=== PATIENT | female | born 1970 | race African-American/Black ===

== ENCOUNTER → 2016-06-29 | Outpatient (CLI) | payer BC ==
[~2016-06-29] MED LIST: LISI2.5T47; SIMV5TAB50; TRIA25CA
[2016-06-29 17:13] LABS: Basophils # (auto) 0 uL; Basophils % (auto) 0.4 % (0.0-2.0); Eosinophils # (auto) 0.2 uL; Eosinophils % (auto) 2.9 % (0.0-7.0); Hematocrit 36.8 % (36.0-46.0); Hemoglobin 12.1 g/dL (12.2-16.2); Lymphocytes # (auto) 2.3 uL; Lymphocytes % (auto) 29.4 % (10.0-50.0); Mean Corpuscular Hemoglobin 28.9 pg (28.0-32.0); Mean Corpuscular Volume 87.6 fL (80.0-100.0); Mean Platelet Volume 7.9 fL (7.4-10.4); Monocytes # (auto) 0.6 uL; Monocytes % (auto) 8.1 % (0.0-12.0); Neutrophils # (auto) 4.6 uL; Neutrophils % (auto) 59.2 % (37.0-80.0); Platelet Count (auto) 433 10^3/uL (140-450); Red Cell Distribution Width 14.6 % (11.6-16.0); White Blood Cell 7.8 10^3/uL (4.4-10.8)
[2016-06-29 17:26] LABS: Albumin 3.4 g/dL (3.4-5.0); BUN/Creatinine Ratio 16.2; Bilirubin, Total 0.2 mg/dL (0.2-1.0); Calcium 8.9 mg/dL (8.5-10.1); Potassium 3.5 mmol/L (3.5-5.1); Total Protein 8.1 g/dL (6.4-8.2)
== END | disposition home or self-care (01) ==
LOC: LAB 16:39
PROVIDERS: ATTEND Internal Medicine
DX: I10 Essential (primary) hypertension (principal); E78.5 Hyperlipidemia, unspecified; E87.6 Hypokalemia
CPT/HCPCS: 36415; 80053; 80061; 82306; 83036; 84439; 84443; 85025

== ENCOUNTER → 2017-05-09 | Outpatient (CLI) | payer BC ==
[~2017-05-09] VITALS: Ht 162.6 cm; Wt 157.4 kg
[~2017-05-09] MED LIST changes: +ADENOSINE 132 MG in GIVE UN-DILUTED 0 ML IV ONE
[2017-05-09 10:45] VITALS: BP 120/86
[2017-05-23 10:48] VITALS: BP 122/74
== END | disposition home or self-care (01) ==
LOC: XY 08:13
PROVIDERS: ATTEND Internal Medicine Cardiovascular Disease
DX: R07.89 Other chest pain (principal)
CPT/HCPCS: 93017; 93306; J0153

== ENCOUNTER → 2018-08-17 | Outpatient (CLI) | payer BC ==
[~2018-08-17] MED LIST changes: -ADENOSINE 132 MG in GIVE UN-DILUTED 0 ML IV ONE
[2018-08-17 08:30] LABS: Basophils # (auto) 0 uL; Basophils % (auto) 0.9 % (0.0-2.0); Eosinophils # (auto) 0.2 uL; Eosinophils % (auto) 3.8 % (0.0-7.0); Hematocrit 39.3 % (36.0-46.0); Lymphocytes # (auto) 1.4 uL; Lymphocytes % (auto) 28.3 % (10.0-50.0); Mean Corpuscular Hemoglobin 28.7 pg (28.0-32.0); Mean Corpuscular Hgb Conc. 33.1 g/dL (32.0-36.0); Mean Corpuscular Volume 86.9 fL (80.0-100.0); Monocytes # (auto) 0.5 uL; Monocytes % (auto) 9.8 % (0.0-12.0); Neutrophils # (auto) 2.8 uL; Neutrophils % (auto) 57.2 % (37.0-80.0); Nucleated Red Blood Cells % 0.1 %; Platelet Count (auto) 334 10^3/uL (140-450); Red Blood Cells 4.53 10^6/uL (4.0-5.20); Red Cell Distribution Width 15.1 % (11.8-14.3); White Blood Cell 4.8 10^3/uL (4.4-10.8)
[2018-08-17 09:07] LABS: Bilirubin, Total 0.3 mg/dL (0.2-1.0); Total Protein 8.4 g/dL (6.4-8.2)
[2018-08-17 09:16] LABS: Albumin 3.9 g/dL (3.4-5.0); Calcium 9.3 mg/dL (8.5-10.1)
[2018-08-17 09:18] LABS: Potassium 3.6 mmol/L (3.5-5.1)
[2018-08-17 09:19] LABS: BUN/Creatinine Ratio 21.2
== END | disposition home or self-care (01) ==
LOC: LAB 08:03
PROVIDERS: ATTEND Physician Assistant
DX: Z00.00 Encounter for general adult medical examination without abnormal findings (principal); E78.49 Other hyperlipidemia; D64.89 Other specified anemias; R73.09 Other abnormal glucose; I10 Essential (primary) hypertension
CPT/HCPCS: 36415; 80053; 80061; 83036; 85025

== ENCOUNTER → 2019-01-25 | Outpatient (CLI) | payer BC | END | disposition home or self-care (01) | LOC: LAB 08:14 | PROVIDERS: ATTEND Specialist | DX: Z01.419 Encounter for gynecological examination (general) (routine) without abnormal findings (principal) | CPT/HCPCS: 36415; 82565; 84520 ==

== ENCOUNTER → 2019-09-17 | Outpatient (CLI) | payer BC ==
[2019-09-17 07:49] LABS: Basophils # (auto) 0.1 10 ^3/uL (0-0.2); Basophils % (auto) 1.2 % (0.0-2.0); Eosinophils # (auto) 0.1 10 ^3/uL (0-0.8); Eosinophils % (auto) 2.3 % (0.0-7.0); Hematocrit 40.9 % (36.0-46.0); Hemoglobin 13.2 g/dL (12.2-16.2); Lymphocytes # (auto) 1.4 10 ^3/uL (0.4-5.4); Lymphocytes % (auto) 21.2 % (10.0-50.0); Mean Corpuscular Hemoglobin 28.7 pg (28.0-32.0); Mean Corpuscular Hgb Conc. 32.3 g/dL (32.0-36.0); Mean Corpuscular Volume 88.9 fL (80.0-100.0); Monocytes # (auto) 0.5 10 ^3/uL (0-1.3); Monocytes % (auto) 8.4 % (0.0-12.0); Neutrophils # (auto) 4.3 10 ^3/uL (1.6-8.6); Neutrophils % (auto) 66.9 % (37.0-80.0); Nucleated Red Blood Cells % 0.1 %; Platelet Count (auto) 351 10^3/uL (140-450); Red Blood Cells 4.61 10^6/uL (4.0-5.20); Red Cell Distribution Width 14.4 % (11.8-14.3); White Blood Cell 6.5 10^3/uL (4.4-10.8)
[2019-09-17 09:24] LABS: Potassium 4.2 mmol/L (3.5-5.1)
[2019-09-17 09:37] LABS: Albumin 3.6 g/dL (3.4-5.0); BUN/Creatinine Ratio 20.3; Bilirubin, Total 0.5 mg/dL (0.2-1.0); Calcium 9.5 mg/dL (8.5-10.1); Total Protein 8.3 g/dL (6.4-8.2)
== END | disposition home or self-care (01) ==
LOC: LAB 07:25
PROVIDERS: ATTEND Physician Assistant
DX: E78.49 Other hyperlipidemia (principal); R76.0 Raised antibody titer; R76.9 Abnormal immunological finding in serum, unspecified; I10 Essential (primary) hypertension; E87.6 Hypokalemia
CPT/HCPCS: 36415; 80053; 80061; 85025

== ENCOUNTER → 2020-04-30 | Outpatient (CLI) | payer BC | END | disposition home or self-care (01) | LOC: LAB 09:23 | PROVIDERS: ATTEND Nurse Practitioner Family | DX: U07.1 COVID-19 (principal) | CPT/HCPCS: C9803; U0003 ==

== ENCOUNTER → 2020-08-06 | Outpatient (CLI) | payer BC | END | disposition home or self-care (01) | LOC: LAB 15:24 | PROVIDERS: ATTEND Radiology Diagnostic Radiology | DX: N63.20 Unspecified lump in the left breast, unspecified quadrant (principal) ==

== ENCOUNTER → 2020-09-23 | Outpatient (CLI) | payer BC ==
[2020-09-23 07:24] LABS: Basophils # (auto) 0.1 10 ^3/uL (0-0.2); Basophils % (auto) 1.2 % (0.0-2.0); Eosinophils # (auto) 0.2 10 ^3/uL (0-0.8); Eosinophils % (auto) 3.4 % (0.0-7.0); Hematocrit 38.5 % (36.0-46.0); Lymphocytes # (auto) 1.5 10 ^3/uL (0.4-5.4); Lymphocytes % (auto) 30.6 % (10.0-50.0); Mean Corpuscular Hgb Conc. 33.9 g/dL (32.0-36.0); Mean Corpuscular Volume 88.6 fL (80.0-100.0); Monocytes # (auto) 0.5 10 ^3/uL (0-1.3); Monocytes % (auto) 9.1 % (0.0-12.0); Neutrophils # (auto) 2.8 10 ^3/uL (1.6-8.6); Neutrophils % (auto) 55.7 % (37.0-80.0); Red Blood Cells 4.34 10^6/uL (4.0-5.20); Red Cell Distribution Width 13.9 % (11.8-14.3)
[2020-09-23 07:51] LABS: Albumin 3.6 g/dL (3.4-5.0); BUN/Creatinine Ratio 30.2; Calcium 9.3 mg/dL (8.5-10.1); Potassium 4.2 mmol/L (3.5-5.1)
[2020-09-23 07:54] LABS: Bilirubin, Total 0.2 mg/dL (0.2-1.0); Total Protein 7.9 g/dL (6.4-8.2)
== END | disposition home or self-care (01) ==
LOC: LAB 07:05
PROVIDERS: ATTEND Internal Medicine
DX: C50.412 Malignant neoplasm of upper-outer quadrant of left female breast (principal)
CPT/HCPCS: 36415; 80053; 83615; 85025; 86300

== ENCOUNTER → 2021-01-18 | Outpatient (CLI) | payer BC ==
[~2021-01-18] VITALS: Ht 162.6 cm; Wt 149.7 kg
[~2021-01-18] MED LIST changes: +HYDR25TA4 PO; +LOSA25TA38 PO; +METF-370 PO; +SIMV-8 PO
[2021-01-18 10:11] LABS: Basophils # (auto) 0 10 ^3/uL (0-0.2); Basophils % (auto) 0.2 % (0.0-2.0); Eosinophils # (auto) 0.1 10 ^3/uL (0-0.8); Eosinophils % (auto) 2.8 % (0.0-7.0); Hematocrit 38.5 % (36.0-46.0); Hemoglobin 12.6 g/dL (12.2-16.2); Lymphocytes # (auto) 1.4 10 ^3/uL (0.4-5.4); Lymphocytes % (auto) 28.1 % (10.0-50.0); Mean Corpuscular Hemoglobin 29.3 pg (28.0-32.0); Mean Corpuscular Hgb Conc. 32.8 g/dL (32.0-36.0); Mean Corpuscular Volume 89.3 fL (80.0-100.0); Monocytes # (auto) 0.4 10 ^3/uL (0-1.3); Neutrophils # (auto) 3.1 10 ^3/uL (1.6-8.6); Neutrophils % (auto) 60.9 % (37.0-80.0); Nucleated Red Blood Cells % 0.1 %; Red Blood Cells 4.31 10^6/uL (4.0-5.20); Red Cell Distribution Width 13.9 % (11.8-14.3); White Blood Cell 5.1 10^3/uL (4.4-10.8)
[2021-01-18 10:28] LABS: Potassium 3.8 mmol/L (3.5-5.1); Urine Bacteria NONE SEEN /hpf (None Seen); Urine Blood Negative /uL (Negative); Urine Specific Gravity 1.019 (1.001-1.035); Urine WBC 1 /hpf (0 - 5)
[2021-01-18 10:38] LABS: Albumin 3.4 g/dL (3.4-5.0); BUN/Creatinine Ratio 23.4; Bilirubin, Total 0.3 mg/dL (0.2-1.0); Calcium 9.4 mg/dL (8.5-10.1); Total Protein 7.8 g/dL (6.4-8.2)
== END | disposition home or self-care (01) ==
LOC: SUR 09:26 → EDSTATUS 01-20 08:45
PROVIDERS: ATTEND Surgery
DX: U07.1 COVID-19 (principal); Z01.812 Encounter for preprocedural laboratory examination; D05.12 Intraductal carcinoma in situ of left breast
CPT/HCPCS: 36415; 80053; 81001; 85025; U0003

== ENCOUNTER → 2022-09-29 | Outpatient (CLI) | payer BC ==
[~2022-09-29] MED LIST changes: -LISI2.5T47; +LOSA25TA15 PO; -LOSA25TA38 PO; -SIMV-8 PO; +SIMV20TA20 PO; -SIMV5TAB50; -TRIA25CA
[2022-09-29 07:51] LABS: Basophils # (auto) 0.1 10 ^3/uL (0-0.2); Basophils % (auto) 1.3 % (0.0-2.0); Eosinophils # (auto) 0.3 10 ^3/uL (0-0.8); Eosinophils % (auto) 5.4 % (0.0-7.0); Hematocrit 34.5 % (36.0-46.0); Hemoglobin 11.5 g/dL (12.2-16.2); Lymphocytes # (auto) 1.4 10 ^3/uL (0.4-5.4); Lymphocytes % (auto) 22.3 % (10.0-50.0); Mean Corpuscular Hemoglobin 28.7 pg (28.0-32.0); Mean Corpuscular Hgb Conc. 33.2 g/dL (32.0-36.0); Mean Corpuscular Volume 86.4 fL (80.0-100.0); Monocytes # (auto) 0.5 10 ^3/uL (0-1.3); Monocytes % (auto) 7.4 % (0.0-12.0); Neutrophils # (auto) 3.9 10 ^3/uL (1.6-8.6); Neutrophils % (auto) 63.6 % (37.0-80.0); Red Blood Cells 3.99 10^6/uL (4.0-5.20); White Blood Cell 6.2 10^3/uL (4.4-10.8)
[2022-09-29 08:24] LABS: Albumin 3.4 g/dL (3.4-5.0); Calcium 8.6 mg/dL (8.5-10.1); Magnesium 1.8 mg/dL (1.6-2.6); Potassium 3.9 mmol/L (3.5-5.1)
[2022-09-29 08:28] LABS: BUN/Creatinine Ratio 23.4 (10.0-20.0); Bilirubin, Total 0.3 mg/dL (0.2-1.0); Total Protein 7.3 g/dL (6.4-8.2)
== END | disposition home or self-care (01) ==
LOC: LAB 07:26
PROVIDERS: ATTEND Internal Medicine
DX: C50.412 Malignant neoplasm of upper-outer quadrant of left female breast (principal)
CPT/HCPCS: 36415; 80053; 82306; 82728; 83540; 83615; 83735; 85025

== ENCOUNTER → 2022-12-15 | Outpatient (CLI) | payer BC ==
[2022-12-15 08:05] LABS: Basophils # (auto) 0.1 10 ^3/uL (0-0.2); Basophils % (auto) 0.9 % (0.0-2.0); Eosinophils # (auto) 0.2 10 ^3/uL (0-0.8); Hematocrit 36.4 % (36.0-46.0); Hemoglobin 11.9 g/dL (12.2-16.2); Lymphocytes # (auto) 1.4 10 ^3/uL (0.4-5.4); Lymphocytes % (auto) 22.8 % (10.0-50.0); Mean Corpuscular Hemoglobin 28.3 pg (28.0-32.0); Mean Corpuscular Hgb Conc. 32.6 g/dL (32.0-36.0); Mean Corpuscular Volume 86.8 fL (80.0-100.0); Monocytes # (auto) 0.6 10 ^3/uL (0-1.3); Monocytes % (auto) 8.7 % (0.0-12.0); Neutrophils # (auto) 4.1 10 ^3/uL (1.6-8.6); Neutrophils % (auto) 64.6 % (37.0-80.0); Nucleated Red Blood Cells % 0.1 %; Red Blood Cells 4.19 10^6/uL (4.0-5.20); White Blood Cell 6.4 10^3/uL (4.4-10.8)
[2022-12-15 08:13] LABS: Urine Bacteria FEW /hpf (None Seen); Urine Blood Negative /uL (Negative); Urine Clarity Clear (Clear); Urine Color Colorless (Yellow); Urine Protein, UAD Negative (Negative); Urine Specific Gravity 1.023 (1.001-1.035); Urine Urobilinogen Normal (Negative); Urine WBC 6 /hpf (0 - 5); Urine pH 5.5 (5.0-8.0)
[2022-12-15 08:38] LABS: Follicle Stimulating Hormone 1.72 IU/L (SEE BELOW)
[2022-12-15 08:55] LABS: Leuteinizing Hormone 0.2 IU/L
== END | disposition home or self-care (01) ==
LOC: LAB 07:41
PROVIDERS: ATTEND Obstetrics & Gynecology
DX: N95.1 Menopausal and female climacteric states (principal)
CPT/HCPCS: 36415; 81001; 82670; 83001; 83002; 84403; 84443; 85025; 87086

== ENCOUNTER → 2023-02-22 | Outpatient (CLI) | payer BC ==
[2023-02-22 08:48] LABS: Urine Bacteria FEW /hpf (None Seen); Urine Blood Negative /uL (Negative); Urine Clarity Clear (Clear); Urine Color Yellow (Yellow); Urine Mucus FEW (None Seen); Urine Protein, UAD Negative (Negative); Urine WBC 3 /hpf (0 - 5); Urine pH 5.5 (5.0-8.0)
== END | disposition home or self-care (01) ==
LOC: LAB 05:57
PROVIDERS: ATTEND Nurse Practitioner
DX: N39.0 Urinary tract infection, site not specified (principal)
CPT/HCPCS: 81001; 87086

== ENCOUNTER → 2023-03-02 | Outpatient (CLI) | payer BC ==
[2023-03-02 07:18] LABS: Basophils # (auto) 0.1 10 ^3/uL (0-0.2); Basophils % (auto) 0.7 % (0.0-2.0); Eosinophils # (auto) 0.1 10 ^3/uL (0-0.8); Eosinophils % (auto) 1.7 % (0.0-7.0); Hematocrit 37.7 % (36.0-46.0); Hemoglobin 12.4 g/dL (12.2-16.2); Lymphocytes # (auto) 1.8 10 ^3/uL (0.4-5.4); Lymphocytes % (auto) 20.5 % (10.0-50.0); Mean Corpuscular Hgb Conc. 32.8 g/dL (32.0-36.0); Mean Corpuscular Volume 85.3 fL (80.0-100.0); Monocytes # (auto) 0.7 10 ^3/uL (0-1.3); Monocytes % (auto) 7.8 % (0.0-12.0); Neutrophils # (auto) 5.9 10 ^3/uL (1.6-8.6); Neutrophils % (auto) 69.3 % (37.0-80.0); Red Blood Cells 4.42 10^6/uL (4.0-5.20); Red Cell Distribution Width 15.8 % (11.8-14.3); White Blood Cell 8.5 10^3/uL (4.4-10.8)
[2023-03-02 08:01] LABS: Alanine Aminotransferase 101 U/L (7-40); Albumin 4.2 g/dL (3.2-4.8); Alkaline Phosphatase 298 U/L (46-116); Anion Gap 8 (5-15); Aspartate Aminotransferase 42 U/L (13-40); BUN/Creatinine Ratio 14.7 (10.0-20.0); Bilirubin, Total 0.5 mg/dL (0.2-1.0); Blood Urea Nitrogen 10 mg/dL (9-23); Calcium 9.9 mg/dL (8.5-10.1); Carbon Dioxide 30 mmol/L (20-30); Chloride 101 mmol/L (98-107); Glucose 155 mg/dL (74-106); Potassium 3.8 mmol/L (3.5-5.1); Sodium 139 mmol/L (136-145); Total Protein 7.5 g/dL (5.7-8.2)
== END | disposition home or self-care (01) ==
LOC: LAB 06:51
PROVIDERS: ATTEND Internal Medicine
DX: C50.412 Malignant neoplasm of upper-outer quadrant of left female breast (principal); Z88.8 Allergy status to other drugs, medicaments and biological substances
CPT/HCPCS: 36415; 80053; 83615; 85025; 86300

== ENCOUNTER 2023-05-02 15:16 | Inpatient (IN) | payer BC ==
[~2023-05-02] VITALS: Ht 162.6 cm; Wt 159.0 kg
[2023-05-02] MEDS: SODIUM CHLORIDE 0.9% 1,000 ML IV SCH (10:30)
[~2023-05-02 15:16] MED LIST changes: +CYCL-614 PO; +IBUP-1456 PO; +SIMV-268; +TRIA25CA
[2023-05-02 16:41] LABS: Hematocrit 33.7 % (36.0-46.0); Hemoglobin 11.1 g/dL (12.2-16.2); Mean Corpuscular Hemoglobin 27.7 pg (28.0-32.0); Mean Corpuscular Hgb Conc. 32.9 g/dL (32.0-36.0); Mean Corpuscular Volume 84.2 fL (80.0-100.0); White Blood Cell 11.7 10^3/uL (4.4-10.8)
[2023-05-02 16:44] LABS: Red Cell Distribution Width 22.9 % (11.8-14.3)
[2023-05-02 16:45] LABS: Band Neutrophils % (manual) 0; Basophils % (manual) 0 (0.0-2.0); Blast Cells 0; Eosinophils % (manual) 0 (0-7); Metamyelocytes % 0; Myelocytes % 0; Promyelocytes % 0; Reactive Lymphocytes 0
[2023-05-02 16:48] LABS: INR 1.64 (0.9-1.15); Partial Thromboplastin Time 50.7 SEC (24.5-34.5); Prothrombin Time 16.7 sec (9.3-11.8)
[2023-05-02 16:52] LABS: Alanine Aminotransferase 40 U/L (7-40); Anion Gap 18 (5-15); Aspartate Aminotransferase 119 U/L (13-40); Blood Urea Nitrogen 70 mg/dL (9-23); Carbon Dioxide 19 mmol/L (20-30); Chloride 94 mmol/L (98-107); Glucose 71 mg/dL (74-106); Potassium 4.3 mmol/L (3.5-5.1); Sodium 131 mmol/L (136-145)
[2023-05-02 16:53] LABS: Albumin 2.7 g/dL (3.2-4.8); Bilirubin, Total 16.3 mg/dL (0.2-1.0); Total Protein 7.1 g/dL (5.7-8.2)
[2023-05-02 17:00] LABS: Alkaline Phosphatase 2123 U/L (46-116)
[2023-05-02 17:10] LABS: Lymphocytes % (manual) 25 (10.0-50.0); Monocytes % (manual) 10 (0-12); Platelet Estimate Decreased
[2023-05-02 17:20] LABS: Lactic Acid w/Reflex 5.3 mmol/L (0.4-2.0)
[2023-05-02 17:26] LABS: BUN/Creatinine Ratio 16.2 (10.0-20.0)
[2023-05-02 17:28] LABS: Lipase 231 U/L (12-53)
[2023-05-02] MEDS ORDERED: PIPERACILLIN-TAZOB 3.375GM 100 ML IV ONE (17:30)
[2023-05-02] MEDS ORDERED: VANCOMYCIN 1GM/200ML 250 ML IV ONE (17:30)
[2023-05-02] MEDS ORDERED: SODIUM CHLORIDE 0.9% 4,750 ML IV ONE (17:45)
[2023-05-02 18:16] VITALS: PULSE 84; RESP 19; O2SAT 95
[2023-05-02 19:45] VITALS: PULSE 86; RESP 25; O2SAT 96
[2023-05-02] MEDS ORDERED: HYDROcodone-ACET 5/325MG TAB PO PRN (19:45)
[2023-05-02] MEDS ORDERED: ACETAMINOPHEN 325 MG TAB PO PRN (19:45)
[2023-05-02] MEDS ORDERED: ONDANSETRON HCL 4 MG/2 ML VIAL IV PRN (19:45)
[2023-05-02] MEDS ORDERED: DOCUSATE SOD 100 MG CAP PO PRN (19:45)
[2023-05-02] MEDS ORDERED: MORPHINE SULFATE INJ 2 MG/ml SYRG IV PRN (19:45)
[2023-05-02] MEDS ORDERED: DEXTROSE (50%) 50ML SYRG IV PRN (20:30)
[2023-05-02] MEDS ORDERED: LACTATED RINGER'S 1,000 ML IV ONE (22:00)
[2023-05-02] MEDS ORDERED: CEFEPIME 2GM/50ML NS 50 ML IV SCH (22:00)
[2023-05-02] MEDS ORDERED: hydrALAZINE HCL 20 MG/ML VL IV PRN (22:15)
[2023-05-02] MEDS: metroNIDAZOLE 500MG/100ML 100 ML IV SCH (23:15)
[2023-05-03] VITALS (54 sets, daily range): BP systolic 70–120; BP diastolic 12–82; PULSE 81–103; RESP 12–27; TEMP 97.5–99; O2SAT 89–100
[2023-05-03] MEDS: ACCU-CHEK COMFORT CURVE STRIP VI SCH ×5 (01:00→20:17)
[2023-05-03] MEDS: InsuLIN REG 1unit/0.01ml Soln (100units/ml) SC SCH ×5 (01:00→20:00)
[2023-05-03 01:20] LABS: Lactic Acid w/Reflex 4.9 mmol/L (0.4-2.0)
[2023-05-03 03:00] LABS: Hematocrit 31.8 % (36.0-46.0); Hemoglobin 10.5 g/dL (12.2-16.2); Mean Corpuscular Hemoglobin 28.1 pg (28.0-32.0); Mean Corpuscular Volume 85.1 fL (80.0-100.0); Red Blood Cells 3.74 10^6/uL (4.0-5.20); White Blood Cell 10.3 10^3/uL (4.4-10.8)
[2023-05-03 03:17] LABS: Alanine Aminotransferase 51 U/L (7-40); Albumin 2.4 g/dL (3.2-4.8); Anion Gap 18 (5-15); Aspartate Aminotransferase 116 U/L (13-40); Blood Urea Nitrogen 72 mg/dL (9-23); Calcium 8.3 mg/dL (8.7-10.4); Carbon Dioxide 16 mmol/L (20-30); Chloride 98 mmol/L (98-107); Glucose 60 mg/dL (74-106); Potassium 4.3 mmol/L (3.5-5.1); Sodium 132 mmol/L (136-145)
[2023-05-03 03:18] LABS: Bilirubin, Total 15.7 mg/dL (0.2-1.0); Total Protein 6.4 g/dL (5.7-8.2)
[2023-05-03 03:19] LABS: Red Cell Distribution Width 22.6 % (11.8-14.3)
[2023-05-03 03:21] LABS: Basophils % (manual) 0 (0.0-2.0); Blast Cells 0; Promyelocytes % 0; Reactive Lymphocytes 0
[2023-05-03 03:26] LABS: Alkaline Phosphatase 1941 U/L (46-116)
[2023-05-03] MEDS: SODIUM CHLORIDE 0.9% 1,000 ML IV SCH (03:45)
[2023-05-03 04:29] LABS: BUN/Creatinine Ratio 16.7 (10.0-20.0)
[2023-05-03 04:37] LABS: Band Neutrophils % (manual) 3; Eosinophils % (manual) 1 (0-7); Lymphocytes % (manual) 28 (10.0-50.0); Metamyelocytes % 3; Monocytes % (manual) 7 (0-12); Myelocytes % 1
[2023-05-03 04:38] LABS: Anisocytosis Slight; Large Platelets FEW; Platelet Estimate Decreased
[2023-05-03] MEDS: metroNIDAZOLE 500MG/100ML 100 ML IV SCH ×3 (06:39→21:45)
[2023-05-03] MEDS ORDERED: NOREPINEPHRINE 8 MG/250ML KIT 250 ML IV ONE (08:29)
[2023-05-03] MEDS ORDERED: SODIUM CHLORIDE 0.9% 1,000 ML IV ONE (08:45)
[2023-05-03] MEDS ORDERED: VANCOMYCIN PER PHARMACY 0 MG IV SCH (08:45)
[2023-05-03] MEDS: NOREPINEPHRINE 8 MG/250ML KIT 250 ML IV SCH ×2 (08:50→17:09)
[2023-05-03] MEDS ORDERED: ENOXAPARIN SOD 30 MG/0.3 ML SYRINGE SC ONE (09:15)
[2023-05-03] MEDS ORDERED: DEXTROSE (50%) 50ML SYRG IV PRN ×2 (09:15)
[2023-05-03] MEDS ORDERED: ACETAMINOPHEN 325 MG TAB PO PRN (09:15)
[2023-05-03] MEDS: SODIUM BICARBONATE 50ML VIAL 150 ML in D5W 5% 1,000 ML IV SCH (09:41)
[2023-05-03] MEDS: PANTOPRAZOLE 40 MG/10 ML VIAL INJ IV SCH (09:52)
[2023-05-03] MEDS: CEFEPIME 2GM/50ML NS 50 ML IV SCH ×2 (09:52→21:45)
[2023-05-03 11:44] LABS: Protein, Urine 183.5 mg/dL (0.0-11.9)
[2023-05-03 11:46] LABS: Creatinine, Urine 168.2 mg/dL (30.0-125.0); Urine Protein/Creatinine Ratio 1.09
[2023-05-03] MEDS ORDERED: ACCU-CHEK COMFORT CURVE STRIP VI SCH (12:00)
[2023-05-03] MEDS ORDERED: FUROSEMIDE 100 MG/10ML VIAL IV ONE (12:00)
[2023-05-03 12:03] LABS: Urine Bacteria FEW /hpf (None Seen); Urine Blood 3+ /uL (Negative); Urine Clarity CLOUDY (Clear); Urine Color Brown (Yellow); Urine Hyaline Cast MANY /lpf (0 - 2); Urine Mucus FEW (None Seen); Urine Protein, UAD 1+ (Negative); Urine WBC 55 /hpf (0 - 5); Urine WBC Clumps PRESENT /hpf (None Seen); Urine pH 5.5 (5.0-8.0)
[2023-05-03 12:55] LABS: Urine Specific Gravity 1.015 (1.001-1.035)
[2023-05-03] MEDS: FUROSEMIDE INJECTION 100 MG in D5W 5% 100 ML IV SCH ×2 (13:16→18:30)
[2023-05-03 13:44] LABS: INR 1.57 (0.9-1.15); Prothrombin Time 16.3 sec (9.3-11.8)
[2023-05-03 14:11] LABS: Chloride 98 mmol/L (98-107); Potassium 4.2 mmol/L (3.5-5.1); Sodium 131 mmol/L (136-145)
[2023-05-03 14:12] LABS: Anion Gap 14 (5-15); Calcium 8.4 mg/dL (8.7-10.4); Carbon Dioxide 19 mmol/L (20-30)
[2023-05-03 14:17] LABS: Glucose 94 mg/dL (74-106)
[2023-05-03 14:32] LABS: BUN/Creatinine Ratio 19.9 (10.0-20.0)
[2023-05-03 14:33] LABS: Blood Urea Nitrogen 90 mg/dL (9-23); Lactic Acid w/Reflex 2.9 mmol/L (0.4-2.0)
[2023-05-03] MEDS: VASOPRESSIN 20 UNITS in SODIUM CHL 0.9% 99 ML IV SCH ×2 (15:38→22:11)
[2023-05-03] MEDS ORDERED: VANCOMYCIN 1GM/200ML 200 ML IV ONE (16:00)
[2023-05-03] MEDS ORDERED: ENOXAPARIN SOD 150 MG/1 ML SYRINGE SC ONE (16:30)
[2023-05-03] MEDS ORDERED: HYDROCORTISONE SOD SUCC 100 MG/2ML INJ VIAL IV ONE (16:30)
[2023-05-03] MEDS ORDERED: LIDOCAINE 1% (LOCAL ANESTH.) PF 5ml SDV ID ONE (17:00)
[2023-05-03] MEDS ORDERED: VANCOMYCIN 500 MG in D5W 5% 100 ML IV ONE (17:00)
[2023-05-03] MEDS: EPINEPHrine HCL 250 ML IV SCH (17:30)
[2023-05-03] MEDS: PHENYLEPHRINE INJ 80 MG in SODIUM CHL 0.9% 242 ML IV SCH (17:45)
[2023-05-03] MEDS: HYDROCORTISONE SOD SUCC 100 MG/2ML INJ VIAL IV SCH (21:45)
[2023-05-03] MEDS: SODIUM CHLOR 0.9% PF (SALINE LOCK) 10ML VIAL/SYR IV SCH (21:46)
[2023-05-03] MEDS: NOREPINEPHRINE BITARTRATE 32 MG in SODIUM CHL 0.9% 218 ML IV SCH (21:47)
[2023-05-04] VITALS (86 sets, daily range): BP systolic 43–147; BP diastolic 19–100; PULSE 60–106; RESP 0–93; TEMP 97–99; O2SAT 65–96
[2023-05-04] MEDS: FUROSEMIDE INJECTION 100 MG in D5W 5% 100 ML IV SCH ×3 (01:20→14:09)
[2023-05-04] MEDS: InsuLIN REG 1unit/0.01ml Soln (100units/ml) SC SCH ×6 (04:00→20:22)
[2023-05-04] MEDS: ACCU-CHEK COMFORT CURVE STRIP VI SCH ×6 (04:00→20:20)
[2023-05-04] MEDS: metroNIDAZOLE 500MG/100ML 100 ML IV SCH ×2 (05:26→14:06)
[2023-05-04 05:54] LABS: Anion Gap 19 (5-15); Carbon Dioxide 19 mmol/L (20-30); Chloride 93 mmol/L (98-107); Potassium 4.4 mmol/L (3.5-5.1); Sodium 131 mmol/L (136-145)
[2023-05-04 05:55] LABS: Calcium 8.6 mg/dL (8.7-10.4)
[2023-05-04 06:00] LABS: Glucose 187 mg/dL (74-106)
[2023-05-04 06:01] LABS: BUN/Creatinine Ratio 21.8 (10.0-20.0)
[2023-05-04 06:49] LABS: Hematocrit 34.8 % (36.0-46.0); Hemoglobin 11.3 g/dL (12.2-16.2); Mean Corpuscular Hemoglobin 27.8 pg (28.0-32.0); Mean Corpuscular Hgb Conc. 32.5 g/dL (32.0-36.0); Mean Corpuscular Volume 85.4 fL (80.0-100.0); Red Blood Cells 4.07 10^6/uL (4.0-5.20); White Blood Cell 15.7 10^3/uL (4.4-10.8)
[2023-05-04 06:55] LABS: Blood Urea Nitrogen 86 mg/dL (9-23)
[2023-05-04 07:00] LABS: Red Cell Distribution Width 23.6 % (11.8-14.3)
[2023-05-04 07:01] LABS: Blast Cells 0; Eosinophils % (manual) 0 (0-7); Reactive Lymphocytes 0
[2023-05-04] MEDS: SODIUM BICARBONATE 50ML VIAL 150 ML in D5W 5% 1,000 ML IV SCH (07:19)
[2023-05-04] MEDS: VASOPRESSIN 20 UNITS in SODIUM CHL 0.9% 99 ML IV SCH ×2 (07:29→18:36)
[2023-05-04 07:51] LABS: Partial Thromboplastin Time 62.6 SEC (24.5-34.5)
[2023-05-04 07:52] LABS: INR 1.93 (0.9-1.15); Prothrombin Time 19.8 sec (9.3-11.8)
[2023-05-04 08:32] LABS: Band Neutrophils % (manual) 4; Basophils % (manual) 1 (0.0-2.0); Lymphocytes % (manual) 30 (10.0-50.0); Metamyelocytes % 6; Monocytes % (manual) 6 (0-12); Myelocytes % 4; Promyelocytes % 1
[2023-05-04 08:33] LABS: Anisocytosis Slight; Platelet Estimate Adequate
[2023-05-04 09:17] LABS: Hepatitis B Surface Antigen Negative (Negative)
[2023-05-04 09:29] LABS: Hepatitis B Surface Antigen Negative (Negative)
[2023-05-04 09:33] LABS: Hepatitis B Core Total AB Negative (Negative)
[2023-05-04 09:38] LABS: Hepatitis C Antibody Negative (Negative)
[2023-05-04] MEDS: CEFEPIME 2GM/50ML NS 50 ML IV SCH (09:43)
[2023-05-04] MEDS: PANTOPRAZOLE 40 MG/10 ML VIAL INJ IV SCH (09:43)
[2023-05-04] MEDS: SODIUM CHLOR 0.9% PF (SALINE LOCK) 10ML VIAL/SYR IV SCH (09:44)
[2023-05-04] MEDS: HYDROCORTISONE SOD SUCC 100 MG/2ML INJ VIAL IV SCH (09:44)
[2023-05-04 09:50] LABS: Hepatitis B Core IgM Negative; Hepatitis C Antibody Negative (Negative)
[2023-05-04] MEDS ORDERED: ENOXAPARIN SOD 150 MG/1 ML SYRINGE SC SCH (10:00)
[2023-05-04] MEDS ORDERED: ENOXAPARIN SOD 30 MG/0.3 ML SYRINGE SC SCH (10:00)
[2023-05-04 10:43] LABS: Hepatitis A Ab IgM Negative
[2023-05-04] MEDS ORDERED: DEXTROSE (50%) 50ML SYRG IV PRN (12:00)
[2023-05-04] MEDS ORDERED: SODIUM BICARBONATE 50ML VIAL 150 ML in D5W 5% 1,000 ML IV SCH (12:00)
[2023-05-04 12:19] LABS: Hepatitis A Total Antibody Positive (Negative); Hepatitis B Surface Antibody Negative (Negative); Hepatitis B Surface Antigen Negative (Negative)
[2023-05-04 12:20] LABS: Hepatitis C Antibody Negative (Negative)
[2023-05-04 13:08] LABS: Albumin 2.7 g/dL (3.2-4.8); Anion Gap 15 (5-15); Calcium 8.8 mg/dL (8.5-10.1); Carbon Dioxide 23 mmol/L (20-30); Chloride 93 mmol/L (98-107); Glucose 184 mg/dL (74-106); Potassium 4.4 mmol/L (3.5-5.1); Sodium 131 mmol/L (136-145)
[2023-05-04 13:13] LABS: Alanine Aminotransferase 71 U/L (7-40); Aspartate Aminotransferase 173 U/L (13-40); BUN/Creatinine Ratio 22.6 (10.0-20.0); Total Protein 7.1 g/dL (5.7-8.2)
[2023-05-04 13:15] LABS: Alkaline Phosphatase 2066 U/L (46-116)
[2023-05-04 13:17] LABS: Blood Urea Nitrogen 81 mg/dL (9-23)
[2023-05-04] MEDS: NOREPINEPHRINE BITARTRATE 32 MG in SODIUM CHL 0.9% 218 ML IV SCH (16:24)
[2023-05-04] MEDS: EPINEPHrine HCL 250 ML IV SCH (17:30)
[2023-05-04] MEDS: PHENYLEPHRINE INJ 80 MG in SODIUM CHL 0.9% 242 ML IV SCH (17:45)
[2023-05-04] MEDS ORDERED: ETOMIDATE (2MG/ML) 20ML VIAL IV ONE (21:10)
[2023-05-04] MEDS ORDERED: SUCCINYLCHOLINE CHLORIDE 20 MG/ML 10ML VIAL IV ONE (21:10)
[2023-05-05] MEDS ORDERED: EPINEPHrine HCL 1 MG/10 ML SYRG IV ONE (09:15)
[2023-05-05] MEDS ORDERED: SODIUM BICARBONATE 8.4% INJ 50ML SYRINGE IV ONE (09:15)
[2023-05-05] MEDS ORDERED: LACTULOSE 20Gm/30ML SOLN PO SCH (21:00)
== END 2023-05-05 09:16 | DRG 871 ==
LOC: EDSEX 15:16 → EDBD 15:16 → EEVIPCON 15:16 → ER 15:16 → EDUNIT# 19:47 → OVERFLOW 19:47 → EAST 21:55 → DOU IN ICU 05-03 10:54 → ICU CENTRL 05-03 22:18
PROVIDERS: ADMIT Internal Medicine; ATTEND Internal Medicine
PROC: 02HV33Z Insertion of Infusion Device into Superior Vena Cava, Percutaneous Approach (ICD-10-PCS; 2023-05-03)
PROC: B548ZZA Ultrasonography of Superior Vena Cava, Guidance (ICD-10-PCS; 2023-05-03)
PROC: 5A12012 Performance of Cardiac Output, Single, Manual (ICD-10-PCS; principal; 2023-05-04)
DX: A41.9 Sepsis, unspecified organism (principal); I21.4 Non-ST elevation (NSTEMI) myocardial infarction; I50.31 Acute diastolic (congestive) heart failure; N17.0 Acute kidney failure with tubular necrosis; I81 Portal vein thrombosis; J96.01 Acute respiratory failure with hypoxia; R65.21 Severe sepsis with septic shock; C90.02 Multiple myeloma in relapse; E87.21 Acute metabolic acidosis; G72.81 Critical illness myopathy; N39.0 Urinary tract infection, site not specified; K80.00 Calculus of gallbladder with acute cholecystitis without obstruction; Z68.44 Body mass index [BMI] 60.0-69.9, adult; E78.5 Hyperlipidemia, unspecified; C50.919 Malignant neoplasm of unspecified site of unspecified female breast; B96.89 Other specified bacterial agents as the cause of diseases classified elsewhere; I46.9 Cardiac arrest, cause unspecified; D69.6 Thrombocytopenia, unspecified; I27.20 Pulmonary hypertension, unspecified; R74.01 Elevation of levels of liver transaminase levels; G89.29 Other chronic pain; K74.60 Unspecified cirrhosis of liver; E11.649 Type 2 diabetes mellitus with hypoglycemia without coma; N18.9 Chronic kidney disease, unspecified; E66.01 Morbid (severe) obesity due to excess calories; I11.0 Hypertensive heart disease with heart failure; Z79.899 Other long term (current) drug therapy; Z85.3 Personal history of malignant neoplasm of breast; Z90.13 Acquired absence of bilateral breasts and nipples; Z92.21 Personal history of antineoplastic chemotherapy
CPT/HCPCS: 36415; 36569; 36600; 71045; 74018; 74176; 76700; 80048; 80053; 80074; 80202; 81001; 82105; 82140; 82248; 82570; 82805; 82962; 83036; 83605; 83615; 83690; 83880; 83935; 84156; 84300; 84443; 84484; 85007; 85027; 85610; 85730; 86704; 86706; 86708; 86803; 86850; 86900; 86901; 87040; 87077; 87081; 87086; 87186; 87340; 93306; 93970; 96365; 96368; 99291; C9113; G0378; J0330; J0692; J2543; J3490; J7042; J7060